=== PATIENT | female | born 1975 | race Caucasian/White ===

== ENCOUNTER 2021-08-19 18:40 | Emergency (ER) | payer OTHER, SELFPAY ==
[2021-08-19 18:45] VITALS: BP 124/76; PULSE 70; RESP 18; TEMP 36.8; O2SAT 99; BMI 20.9
--- NOTE | 2021-08-19 19:01 | HMH.EDUTC ---
[facility] [place] Disposition Clinical Impression: UTI (urinary tract infection) Qualifiers: Urinary tract infection type: site unspecified Hematuria presence: with hematuria Qualified Code(s): N39.0 - Urinary tract infection, site not specified Disposition: Home, Self-Care Condition on Discharge: Good Instructions: Urinary Tract Infection, DI for Urinary Tract Infection (UTI) Additional Instructions: *Increase fluids. Water not Soda or Tea *Start antibiotic immediately and be sure to take as ordered for the FULL length of time although you should start to see improvement over the next 48 hours *Pyridium as needed Remember this medication will turn your urine [place]. This is normal but it will stain what ever it gets on *You should not use Pyridium for more than 48 hours. If so , follow up with your primary physician to review urine culture and ensure that antibiotic is adequate for infection *Be SURE to follow up anytime for new or worsening symptoms with your family doctor. AND in 48 hours for urine culture results with your family doctor, if you do not have a doctor then you may call back to the [facility] for urine culture results and further treatment. We do recommend that you choose and establish care with a Primary Care Physician. AND follow up with them in 10-14 days to repeat UA to ensure infection is resolved and blood no longer present *Be sure to let your PCP know that we sent urine cultures from the [facility] so they can follow up to ensure that you area the on the correct antibiotic Call your doctor office and make appointment for 48 hours (2 days from today) to follow up and get the results of your urine culture and further treatment Prescriptions: Sulfamethoxazole/Trimethoprim [Bactrim DS tablet] 1 each PO BID 10 Days #20 tab Transmission Status: Received by [facility]/pharmacy #[id number] Phenazopyridine HCl [Pyridium 200mg Tablet] 200 pow PO TID #6 tab Transmission Status: Received by [id number] Referrals: Amador Aranda MD [Primary Care Provider] - Time of Disposition: 19:22 Medical Decision Making - Garcia Inquiry Pt receiving controlled substance: No Garcia was queried for this patient: No Vital Signs: 08/19/21 18:45 08/19/21 19:22 Temperature 98.3 F 98.3 F Temperature Source Oral Pulse Rate 70 Pulse Rate [Right Brachial] 70 Respiratory Rate 18 18 Blood Pressure 124/76 Blood Pressure [Right Arm] 124/76 Blood Pressure Mean [Right Arm] 92 Blood Pressure Source [Right Arm] Automatic Cuff Blood Pressure Position [Right Arm] Sitting 02 Sat by Pulse Oximetry 99 Oxygen Delivery Method Room Air - Lab Data Lab Results 08/19/21 18:49: Urine Color Dark yellow, Urine Appearance Clear, Urine pH 5.5, Ur Specific [place] 1.030, Urine Protein Negative, Urine Glucose (UA) Negative, Urine Ketones Negative, Urine Blood 2+, Urine Nitrate Positive A, Urine Bilirubin Negative, Urine Urobilinogen 0.2, Ur Leukocyte Esterase Negative Orders (Tests/Meds): ED MEDICATIONS Discontinued Medications Generic Name Dose Route Start Last Admin Trade Name Freq PRN Reason Stop Dose Admin Ceftriaxone Sodium 1 gm 08/19/21 19:10 08/19/21 19:20 Ceftriaxone 1gm Vial IM 08/19/21 19:11 1 gm ONCE ONE Administration Lidocaine HCl 0 ml 08/19/21 19:10 08/19/21 19:20 Lidocaine 1% 5ml Pf Vial IM 08/19/21 19:11 2 ml ONCE ONE Administration Medical Decision Narrative: Patient denies history of Kidney stones States that this is like it usually is when she gets a UTI Patient states that she has taken bactrim in the past without complications or reactions [facility] [place] HPI - General Stated complaint: possible kidney infection Time Seen by Provider: 08/19/21 19:01 Mode of Arrival: Ambulatory Source of Information: Patient Limitations: No Limitations Description of Symptoms (Recalled from Triage Doc. by RN): PATIENT C/O RIGHT SIDE PAIN, DIFFICULTY URINATING AND NAUSEA SINCE FRIDAY HEENT Symptoms (Recalled from RN notes)
[2021-08-19 19:03] LABS: Apearance,Urine Clear (Clear); Bilirubin,Urine Negative (Negative); Blood, Urine 2+ (Negative); Color,Urine Dark Yellow (Yellow); Glucose,Urine (UA) Negative (Negative); Ketones,Urine Negative (Negative); PH,Urine 5.5 (5.0-8.5); Protein,Urine Negative (Negative); UTC Leukocyte Esterase,Urine Negative (Negative); UTC Nitrate,Urine Positive (Negative); Urobilinogen,Urine 0.2 EU/dl (0.2)
[2021-08-19 19:22] VITALS: BP 124/76; PULSE 70; RESP 18; TEMP 36.8; O2SAT 99
== END 2021-08-19 19:28 | disposition home or self-care (01) ==
PROVIDERS: Emergency Provider Nurse Practitioner; PCP Emergency Medicine
DX: N30.00 Acute cystitis without hematuria (principal); F17.210 Nicotine dependence, cigarettes, uncomplicated; R11.0 Nausea
CPT/HCPCS: 81003; 96372; 99202; G0463; J0696

== ENCOUNTER 2021-08-21 09:54 | Emergency (ER) | payer OTHER, SELFPAY ==
[2021-08-21] VITALS (7 sets, daily range): BP systolic 108–138; BP diastolic 63–87; PULSE 68–89; RESP 16–18; TEMP 36.6–36.7; O2SAT 98–100; BMI 21.6
[2021-08-21 10:14] LABS: Microscopic, Urine URINE MICROSCOPIC (MICROSCOPIC)
[2021-08-21 10:19] LABS: Appearance,Urine CLEAR (Clear); Bilirubin,Urine Negative (Negative); Blood, Urine TRACE-I (Negative); Color,Urine YELLOW (Yellow); Glucose,Urine (UA) 1+ (Negative); Ketones,Urine 1+ (Negative); Leukocyte Esterase,Urine TRACE (Negative); Nitrate,Urine POSITIVE (Negative); Protein,Urine 2+ (Negative); Specific Gravity, Urine 1.025 (1.005-1.030); Urobilinogen,Urine >=8.0 EU/dl (0.2)
[2021-08-21 10:23] LABS: Basophils # 0.2 K/mm3 (0-0.2); Basophils % 1.6 % (0.1-2.0); Eosinophils # 0.1 K/mm3 (0.0-0.4); Eosinophils % 0.9 % (0.1-12.0); Hematocrit 50.7 % (37.0-47.0); Hemoglobin 16.2 g/dL (12.2-16.2); Lymphocytes # 3.6 K/mm3 (0.7-4.5); Lymphocytes % 29.9 % (10-50); Mean Corpuscular Hemoglobin 32.9 pg (27.0-31.2); Mean Corpuscular Volume 103.1 fl (81-99); Mean Platelet Volume 7.6 fl (7.4-10.4); Monocytes # 0.6 K/mm3 (0.1-1.0); Neutrophils # 7.5 K/mm3 (1.8-7.8); Neutrophils % 62.6 % (37.0-80.0); Platelet Count 552 K/mm3 (142-424); Red Blood Count 4.91 M/mm3 (4.20-5.40); Red Cell Distribution Width 12.9 % (11.5-17.5); White Blood Count 11.9 K/mm3 (4.8-10.8)
[2021-08-21 10:34] LABS: Chloride 101 mmol/L (98-107); Potassium 3.5 mmoL/L (3.5-5.1); Sodium 135 mmol/L (136-145)
[2021-08-21 10:36] LABS: Blood Urea Nitrogen 14 mg/dl (7-17); Creatinine Clearance Estimated 95 mL/min (50-200); Estimated Glomerular Filt Rate 91 ml/min (>60); GFR (African American) 110 ML/MIN (>60)
[2021-08-21 10:37] LABS: Alanine Aminotransferase 21 U/L (12-78); Albumin Level 5.1 g/dl (3.5-5.0); Albumin/Globulin Ratio 1.5 (1.1-1.8); Alkaline Phosphatase 86 U/L (38-126); Anion Gap 14.5 mEq/L (5-15); Aspartate Amino Transferase 32 U/L (14-36); Bilirubin,Total 0.7 mg/dl (0.2-1.3); Calcium 9.6 mg/dl (8.4-10.2); Carbon Dioxide 23 mmol/L (22.0-30.0); Globulin 3.3 g/dL (1.3-3.2); Glucose 107 mg/dl (74-100); Total Protein,Serum 8.4 g/dl (6.3-8.2)
--- NOTE | 2021-08-21 10:44 | HMH.EDGENADL ---
ED Disposition Clinical Impression: Colitis Disposition: Home, Self-Care Condition on Discharge: Fair Instructions: DI for Diarrhea and Traveler's Diarrhea -- Adult, DI for Nausea -- Adult Additional Instructions: Stop taking Bactrim. Take vancomycin as prescribed. Zofran as needed for nausea and vomiting. Rest and drink plenty of fluids. Tylenol as needed. Outpatient diarrhea profile, return sample with order to the laboratory here at [facility]. Close follow-up with your primary care provider, within 1 to 2 days. Return to the emergency department if worsening pain, fever greater than 101 degrees, uncontrollable vomiting, or bloody diarrhea. Prescriptions: Vancomycin HCl 125 mg PO QID #40 cap Transmission Status: [facility] by [id number] Ondansetron [Zofran 4mg ODT] 4 mg PO TIDP PRN #10 tab PRN Reason: Nausea And Vomiting Transmission Status: Re[facility] by [id number] Referrals: Amador Aranda MD [Primary Care Provider] - Forms: Work/School Release - Critical Care Critical Care Time: No Attestation: On 08/21/21, the high probability of a clinically significant, sudden or life threatening deterioration of the following system(s) required my full and direct attention, intervention and personal management. The time I documented below is in addition to time spent performing reported procedures but includes the following listed in this critical care notation. Medical Decision Making - Medical Records Medical records reviewed: Yes: I reviewed the patient's medical records. MR Comment: Reviewed urgent treatment center record from 08/19/2021. Urine analysis was positive for nitrates and blood. Urine culture not performed. - Garcia Inquiry Pt receiving controlled substance: Yes Garcia was queried for this patient: Yes Risks and benefits of using a controlled substance: were discussed with pt by me Vital Signs: 08/21/21 09:55 08/21/21 10:30 08/21/21 11:00 Temperature 98.1 F Temperature Source Oral Pulse Rate 72 77 Pulse Rate [Radial] 85 Respiratory Rate 16 18 Blood Pressure 108/63 L 120/74 Blood Pressure [Right Arm] 129/87 Blood Pressure Mean 88 93 Blood Pressure Mean [Right Arm] 101 Blood Pressure Position Blood Pressure Position [Right Arm] Sitting 02 Sat by Pulse Oximetry 98 99 100 Oxygen Delivery Method Room Air 08/21/21 11:30 08/21/21 12:04 08/21/21 12:30 Temperature Temperature Source Pulse Rate 77 78 68 Pulse Rate [Radial] Respiratory Rate 18 18 18 Blood Pressure 119/68 120/74 133/80 Blood Pressure [Right Arm] Blood Pressure Mean 85 97 Blood Pressure Mean [Right Arm] Blood Pressure Position Blood Pressure Position [Right Arm] 02 Sat by Pulse Oximetry 100 99 Oxygen Delivery Method 08/21/21 13:28 Temperature 98 F Temperature Source Oral Pulse Rate 89 Pulse Rate [Radial] Respiratory Rate 16 Blood Pressure 138/83 Blood Pressure [Right Arm] Blood Pressure Mean Blood Pressure Mean [Right Arm] Blood Pressure Position Sitting Blood Pressure Position [Right Arm] 02 Sat by Pulse Oximetry Oxygen Delivery Method Room Air - Lab Data Lab Results 08/21/21 09:59: Urine Color Yellow, Urine Appearance Clear, Urine pH 5.0, Ur Specific [place] 1.025, Urine Protein 2+, Urine Glucose (UA) 1+, Urine Ketones 1+, Urine Blood Trace-i, Urine Nitrate Positive, Urine Bilirubin Negative, Urine Urobilinogen >=8.0, Ur Leukocyte Esterase Trace, Urine RBC 3-5, Urine WBC 3-5, Ur Squamous Epith Cells 3-5, Amorphous Sediment 1+, Urine Bacteria 2+ 08/21/21 10:00: Amylase 106, Lipase 189 08/21/21 10:05: WBC 11.9 H, RBC 4.91, Hgb 16.2, Hct 50.7 H, MCV 103.1 H, MCH 32.9 H, MCHC 32.0, RDW 12.9, Plt Count 552 H, MPV 7.6, Neut % (Auto) 62.6, Lymph % (Auto) 29.9, [place] % (Auto) 5.0, Eos % (Auto) 0.9, Baso % (Auto) 1.6, Neut # (Auto) 7.5, Lymph # (Auto) 3.6, [place] # (Auto) 0.6, Eos # (Auto) 0.1, Baso # (Auto) 0.2 08/21/21 10:05:
--- NOTE | 2021-08-21 10:49 | CT_ITS ---
FINAL REPORT CLINICAL HISTORY: abdo pain FINDINGS: CT OF THE ABDOMEN AND PELVIS WITH CONTRAST Axial CT images of the abdomen and pelvis were obtained after the administration of intravenous contrast. Coronal reformatted images were also obtained and reviewed.This study was performed with techniques to keep radiation doses as low as reasonably achievable (ALARA). Individualized dose reduction techniques using automated exposure control or adjustment of mA and/or kV according to the patient's size were employed. Abdomen: A calcified granuloma is seen in the lingula. The heart is normal in size. The liver has an unremarkable appearance. There has been cholecystectomy. There is mild biliary ductal dilatation that may represent post cholecystectomy change. The spleen is unremarkable. There is mild right adrenal gland enlargement favoring an adenoma or hyperplasia. There is a 31 mm left adrenal mass neck cannot be accurately characterized but may represent an adenoma. The pancreas has an unremarkable appearance. The kidneys are normal, without evidence of mass or hydronephrosis. The aorta is normal in caliber. There is no free fluid or adenopathy. Pelvis: The appendix is normal. There is wall thickening of the descending colon, sigmoid colon and rectum likely representing colitis. There are several diverticulum throughout the descending colon. The urinary bladder is unremarkable. A small mass in the uterus likely represents a fibroid. A small amount of free fluid could be physiologic or reactive. There is a corpus luteum cyst in the right ovary. IMPRESSION: Wall thickening of the descending colon, sigmoid colon and rectum likely represents colitis. Left adrenal mass cannot be accurately characterized but may represent an adenoma. Mild right adrenal gland enlargement favors an adenoma or hyperplasia. Small mass in the uterus likely represents a fibroid. Corpus luteum cyst in right ovary. Reviewed, Interpreted and Dictated by Tyrese Berumen III, MD Transcribed by Jesus Thornton Authenticated by Tyrese Berumen III, MD on 08/21/2021 12:34:43 PM [facility]
[2021-08-21 10:59] LABS: Amylase 106 U/L (30-110)
[2021-08-21 11:00] LABS: Lipase 189 U/L (23-300)
[2021-08-21 11:12] LABS: Amorphous Sediment,Urine 1+ /lpf; Bacteria,Urine 2+ /lpf
[2021-08-21 11:21] LABS: HCG Qualitative, Serum Negative (Negative)
== END 2021-08-21 13:29 | disposition home or self-care (01) ==
PROVIDERS: Emergency Provider Emergency Medicine; PCP Emergency Medicine
DX: K52.9 Noninfective gastroenteritis and colitis, unspecified
CPT/HCPCS: 74177; 80053; 81001; 82150; 83690; 84703; 85025; 87086; 96365; 96375; 96376; 99283; J2405; Q9967

== ENCOUNTER 2021-08-22 11:03 | Emergency (ER) | payer OTHER, SELFPAY ==
[2021-08-22 11:04] VITALS: BP 111/76; PULSE 99; RESP 16; TEMP 36.9; O2SAT 98; BMI 21.6
[2021-08-22 11:19] LABS: Adenovirus F 40/41, stool Not Detected (NotDetected); Astrovirus Not Detected (NotDetected); Campylobacter Not Detected (NotDetected); Clostridium Difficile A/B, PCR Not Detected (NotDetected); Cryptosporidium Not Detected (NotDetected); Cyclospora Cayetanesis Not Detected (NotDetected); Entamoeba histolytica Not Detected (NotDetected); Enteroaggregative E coli Not Detected (NotDetected); Enteropathogenic E coli Not Detected (NotDetected); Enterotoxigenic E coli Not Detected (NotDetected); Giardia lamblia Not Detected (NotDetected); Norovirus Not Detected (NotDetected); Plesimonas Shigalloides, PCR Not Detected (NotDetected); Rotavirus A Not Detected (NotDetected); Salmonella, PCR Not Detected (NotDetected); Sapovirus Not Detected (NotDetected); Shiga-like toxin E coli Not Detected (NotDetected); Shigella Enterovasive E coli Not Detected (NotDetected); Vibrio Cholerae Not Detected (NotDetected); Vibrio, PCR Not Detected (NotDetected); Yersinia Entercolitica, PCR Not Detected (NotDetected)
--- NOTE | 2021-08-22 11:20 | HMH.EDGENADL ---
ED Disposition Clinical Impression: Colitis, Abdominal cramping Disposition: Home, Self-Care Condition on Discharge: Good Instructions: Acute Abdominal Pain, DI for Colitis Additional Instructions: follow up pcp, return for worse Prescriptions: Dicyclomine HCl [Bentyl 10mg capsule] 10 mg PO TID PRN #15 cap PRN Reason: Cramping Transmission Status: [id number] Hydrocodone/Acetaminophen [Hydrocodone-Acetamin 5-325 mg] 1 tab PO Q6 PRN 2 Days #5 tab PRN Reason: Moderate To Severe Pain Transmission Status: [facility] by [id number] Referrals: Amador Aranda MD [Primary Care Provider] - - Critical Care Critical Care Time: No Attestation: On 08/22/21, the high probability of a clinically significant, sudden or life threatening deterioration of the following system(s) required my full and direct attention, intervention and personal management. The time I documented below is in addition to time spent performing reported procedures but includes the following listed in this critical care notation. Medical Decision Making - Medical Records Medical records reviewed: Yes: I reviewed the patient's medical records. - Garcia Inquiry Pt receiving controlled substance: No Vital Signs: 08/22/21 11:04 08/22/21 12:00 08/22/21 13:00 Temperature 98.5 F Temperature Source Oral Pulse Rate 78 80 Pulse Rate [Radial] 99 H Respiratory Rate 16 18 Blood Pressure 120/68 118/71 Blood Pressure [Right Arm] 111/76 Blood Pressure Mean 90 Blood Pressure Mean [Right Arm] 87 Blood Pressure Position Blood Pressure Position [Right Arm] Sitting 02 Sat by Pulse Oximetry 98 98 100 Oxygen Delivery Method Room Air Room Air 08/22/21 13:14 Temperature 98 F Temperature Source Oral Pulse Rate 78 Pulse Rate [Radial] Respiratory Rate 18 Blood Pressure 113/74 Blood Pressure [Right Arm] Blood Pressure Mean Blood Pressure Mean [Right Arm] Blood Pressure Position Sitting Blood Pressure Position [Right Arm] 02 Sat by Pulse Oximetry Oxygen Delivery Method Room Air - Lab Data Lab Results 08/22/21 11:09: Stl Aeromonas (PCR) Not detected, Stl C. cayetanensis PCR Not detected, Stool Rotavirus (PCR) Not detected, Stl Adenov F 40/41 PCR Not detected, Stool Astrovirus (PCR) Not detected, Stool Campylobacter PCR Not detected, Stl C.difficile Tox PCR Not detected, Stool Cryptosporidium PCR Not detected, Stl E.coli Shiga Tox PCR Not detected, Stool E coli O157 PCR Not detected, Stl Enterotoxigenic E PCR Not detected, Stool EPEC (PCR) Not detected, Stool EAEC (PCR) Not detected, Stl E. histolytica PCR Not detected, Stool Giardia Lamblia PCR Not detected, Stool Salmonella PCR Not detected, Stool Sapovirus (PCR) Not detected, Stl P. shigelloides PCR Not detected, Stl Shigella/EIEC PCR Not detected, St Y.enterocolitica PCR Not detected, Stool Vibrio (PCR) Not detected, Stl Vibrio cholerae PCR Not detected, Stl Norovirus GI/GII PCR Not detected 08/22/21 11:25: WBC 9.2, RBC 4.34, Hgb 14.4, Hct 44.0, MCV 101.4 H, MCH 33.2 H, MCHC 32.7, RDW 13.0, Plt Count 473 H, MPV 7.6, Neut % (Auto) 53.9, Lymph % (Auto) 38.2, [place] % (Auto) 5.1, Eos % (Auto) 1.0, Baso % (Auto) 1.7, Neut # (Auto) 4.9, Lymph # (Auto) 3.5, [place] # (Auto) 0.5, Eos # (Auto) 0.1, Baso # (Auto) 0.2 08/22/21 11:25: Sodium 133 L, Potassium 3.1 L, Chloride 103, Carbon Dioxide 23, Anion Gap 10.1, BUN 13, Creatinine 0.70, Estimated Creat Clear 95, Estimated GFR 91, Est GFR ( Amer) 110, Glucose 101 H, Calcium 8.5, Total Bilirubin 0.9, AST 34, ALT 19, Alkaline Phosphatase 74, Total Protein 7.6, Albumin 4.7, Globulin 2.9, Albumin/Globulin Ratio 1.6 Result diagrams: 08/22/21 11:25 08/22/21 11:25 Orders (Tests/Meds): ED MEDICATIONS Discontinued Medications Generic Name Dose Route Start Last Admin Trade Name Freq PRN Reason Stop Dose Admin Dicyclomine HCl 20 mg 08/22/21 11:20 08/22/21 12:53 Dicyclomine 10mg Capsule PO 08/22/21 11:21
[2021-08-22 11:35] LABS: Basophils # 0.2 K/mm3 (0-0.2); Basophils % 1.7 % (0.1-2.0); Eosinophils # 0.1 K/mm3 (0.0-0.4); Hemoglobin 14.4 g/dL (12.2-16.2); Lymphocytes # 3.5 K/mm3 (0.7-4.5); Lymphocytes % 38.2 % (10-50); Mean Corpuscular HGB Conc 32.7 g/dL (31.8-35.4); Mean Corpuscular Hemoglobin 33.2 pg (27.0-31.2); Mean Corpuscular Volume 101.4 fl (81-99); Mean Platelet Volume 7.6 fl (7.4-10.4); Monocytes # 0.5 K/mm3 (0.1-1.0); Monocytes % 5.1 % (1.7-9.3); Neutrophils # 4.9 K/mm3 (1.8-7.8); Neutrophils % 53.9 % (37.0-80.0); Platelet Count 473 K/mm3 (142-424); Red Blood Count 4.34 M/mm3 (4.20-5.40); White Blood Count 9.2 K/mm3 (4.8-10.8)
[2021-08-22 11:44] LABS: Chloride 103 mmol/L (98-107); Sodium 133 mmol/L (136-145)
[2021-08-22 11:45] LABS: Potassium 3.1 mmoL/L (3.5-5.1)
[2021-08-22 11:47] LABS: Alanine Aminotransferase 19 U/L (12-78); Albumin Level 4.7 g/dl (3.5-5.0); Albumin/Globulin Ratio 1.6 (1.1-1.8); Alkaline Phosphatase 74 U/L (38-126); Anion Gap 10.1 mEq/L (5-15); Aspartate Amino Transferase 34 U/L (14-36); Bilirubin,Total 0.9 mg/dl (0.2-1.3); Blood Urea Nitrogen 13 mg/dl (7-17); Calcium 8.5 mg/dl (8.4-10.2); Carbon Dioxide 23 mmol/L (22.0-30.0); Creatinine Clearance Estimated 95 mL/min (50-200); Estimated Glomerular Filt Rate 91 ml/min (>60); GFR (African American) 110 ML/MIN (>60); Globulin 2.9 g/dL (1.3-3.2); Glucose 101 mg/dl (74-100); Total Protein,Serum 7.6 g/dl (6.3-8.2)
[2021-08-22 12:00] VITALS: BP 120/68; PULSE 78; RESP 18; O2SAT 98
[2021-08-22 13:00] VITALS: BP 118/71; PULSE 80; O2SAT 100
[2021-08-22 13:14] VITALS: BP 113/74; PULSE 78; RESP 18; TEMP 36.6; O2SAT 98
== END 2021-08-22 13:15 | disposition home or self-care (01) ==
PROVIDERS: Emergency Provider Emergency Medicine; PCP Emergency Medicine
DX: K52.9 Noninfective gastroenteritis and colitis, unspecified (principal); F17.210 Nicotine dependence, cigarettes, uncomplicated
CPT/HCPCS: 80053; 85025; 87506; 96365; 96375; 99282; J2405

== ENCOUNTER 2023-02-21 18:12 | Emergency (ER) | payer OTHER, SELFPAY ==
[2023-02-21 18:25] VITALS: BP 137/86; PULSE 63; RESP 20; TEMP 36.6; O2SAT 97; BMI 23.5
--- NOTE | 2023-02-21 18:36 | EXP.UTC ---
Discharge Plan Disposition Patient Disposition: Home, Self-Care Condition: Good Prescriptions Prescriptions: New amoxicillin 875 mg tablet 875 mg PO Q12H 10 Days Qty: 20 0RF ibuprofen 800 mg tablet 800 mg PO TID PRN (Reason: pain) Qty: 30 0RF No Action sertraline 100 MG tablet 100 mg PO DAILY propranolol 20 MG tablet 10 mg PO TID Referrals Follow up/Referrals: Amador Aranda MD [Primary Care Provider] - See instructions Activity Restrictions/Add. Instructions Additional Instructions/Restrictions: Call and make an appointment with dentist on Friday. Take all antibiotic as prescribed. Take medication with food. Clinical Impressions Clinical Impression: Dental abscess Instructions Patient Instructions: DI for Dental Pain Discharge ED Provider: Ana Maria Aleman [facility] General Stated complaint: tooth pain left upper Time Seen by Provider: 02/21/23 18:36 Related Data Home Medications Medication Instructions Recorded Confirmed propranolol 20 mg tablet 10 mg PO TID TACHYCARDIA 08/21/21 02/21/23 sertraline 100 mg tablet 100 mg PO DAILY Depression 08/21/21 02/21/23 Previous Rx's Medication Instructions Recorded amoxicillin 875 mg tablet 875 mg PO Q12H 10 days #20 tabs 02/21/23 ibuprofen 800 mg tablet 800 mg PO TID PRN pain #30 tabs 02/21/23 Allergies Allergy/AdvReac Type Severity Reaction Status Date / Time latex Allergy Verified 08/19/21 19:01 [facility] Disclaimer: The information contained in this section may have been updated after the patient was seen, as this information can be updated by other users. Medical History (Updated 02/21/23 @ 18:52 by Ana Maria Aleman APRN) Anxiety Depression UTI (urinary tract infection) Surgical History (Updated 02/21/23 @ 18:45 by Vania Vanegas RN) History of section History of cholecystectomy History of tubal ligation Social History Smoking Status: Current every day smoker tobacco type: cigarettes packs per day: 1 alcohol intake: never current occupational status: other Travel in the last 8 weeks: None ROS Obtained: Yes All systems reviewed & no additional complaints except as documented Constitutional Constitutional: Reports system reviewed and no additional complaints, except as documented Eyes Eyes: Reports system reviewed and no additional complaints, except as documented ENT Ears, Nose, Mouth, and Throat: Reports system reviewed and no additional complaints, except as documented, Reports dental pain and Reports facial pain Cardiovascular Cardiovascular: Reports system reviewed and no additional complaints, except as documented Respiratory Respiratory: Reports system reviewed and no additional complaints, except as documented Gastrointestinal Gastrointestingal: Reports system reviewed and no additional complaints, except as documented Genitourinary Female Genitourinary: Reports system reviewed and no additional complaints, except as documented Musculoskeletal Musculoskeletal: Reports system reviewed and no additional complaints, except as documented Integumentary/Breasts Skin/Breast: Reports system reviewed and no additional complaints, except as documented Neurologic Neurologic: Reports system reviewed and no additional complaints, except as documented Endocrine Endocrine: Reports system reviewed and no additional complaints, except as documented Hematologic/Lymphatic Henatologic/Lymphatic: Reports system reviewed and no additional complaints, except as documented Allergic/Immunologic Allergic/Immunologic: Reports system reviewed and no additional complaints, except as documented Physical Exam General General appearance: alert Comment: Appears in pain Head Head exam: atraumatic and normocephalic Eye Eye exam: Present normal appearance Expanded ENT Exam External ear exam: Present normal external inspection Nasal speculum exam: Bilateral: normal Mouth exam: Present norm
[2023-02-21 18:56] VITALS: BP 137/86; PULSE 63; RESP 20; TEMP 36.6; O2SAT 97
== END 2023-02-21 19:08 | disposition home or self-care (01) ==
PROVIDERS: Emergency Provider Nurse Practitioner Family; PCP Emergency Medicine
DX: K04.7 Periapical abscess without sinus (principal); R22.0 Localized swelling, mass and lump, head; F17.210 Nicotine dependence, cigarettes, uncomplicated; F41.9 Anxiety disorder, unspecified; F32.A Depression, unspecified
CPT/HCPCS: 99212; 99214; G0463

== ENCOUNTER 2025-01-18 06:58 | Emergency (ER) | payer OTHER, SELFPAY ==
--- NOTE | 2025-01-18 07:06 | ECG_ITS ---
APPROVED REPORT Exam: Resting ECG HR:78 bpm ECG Measurements Heart Rate 78 AXES WA 137 P 84 QRSd 82 QRS 76 QT 368 T 71 QTc 402 Conclusion SINUS RHYTHM INDETERMINATE AXIS POSSIBLE RIGHT VENTRICULAR CONDUCTION DELAY [RSR (QR) IN V1/V2] BORDERLINE ECG UNCONFIRMED REPORT Electronically signed by : Ian Barrett, 01/18/2025 15:28:47
--- OUTSIDE RECORDS SUMMARY | 2025-01-18 07:06 | XMS_ITS | Data Portability ---
Author Organization [facility] & KENNEDI Soriano ADMIN Address [address] [place] [address] Care Team Providers Care Satellite Dish Technician Name Role Phone ALIREZAHaiAMADOR Primary Care Provider [phone] Assessment No assessment recorded. Plan of Treatment Reminders Order Date Submit Date Provider Last Modified By Organization Details Last Modified Time Details Appointments None recorded. Lab None recorded. Referral None recorded. Procedures None recorded. Surgeries None recorded. Imaging XR, sacrum + coccyx 2024 025 [email or web address] 0 [facility] (Scheduling), [address] [place], [address], 5 08:09:54 XR, cervical spine, 2 or 3 view 2024 025 [facility] (Scheduling), [address] [place], [address], 5 08:09:54 XR, lumbosacral spine, 2 or 3 view 2023 024 [facility] Centralized Scheduling, [address] [place], [address], 4 11:24:01 Medication Orders methocarbam ol 750 mg tablet 2024 025 [facility]/Pharmacy #3016, [address] [place], [address], 5 10:56:00 Lidoderm 5 % topical patch 2024 025 [facility] [address] [place], [address], 5 10:56:01 prednisone 50 mg tablet 2024 025 [facility] [address] [place], [address], 5 10:56:01 triamcinolo ne acetonide 40 mg/mL suspension for injection 2024 025 [email or web address] 0 Not available 5 11:50:42 dexamethaso ne sodium phosphate 4 mg/mL injection solution 2024 025 [email or web address] 0 Not available 5 11:51:37 cyclobenzap rine 10 mg tablet 2024 025 [facility] [address] [place], [address], 5 10:21:09 meloxicam 15 mg tablet 2024 025 [facility] [address] [place], [address], 5 10:21:10 dexamethaso ne sodium phosphate 4 mg/mL injection solution 2023 024 [email or web address] Not available 5 15:19:04 Kenalog 40 mg/mL suspension for injection 2023 024 tpardini Not available 5 15:19:06 prednisone 50 mg tablet 2023 025 [facility] [address] [place], [address], 5 15:19:17 cyclobenzap rine 10 mg tablet 2023 025 tpardini [facility]/Pharmacy #3016, [address] [place], [address], 5 10:21:06 tramadol 50 mg tablet 2023 025 PADMINI [facility]/Pharmacy #3016, [address] [place], [address], 5 15:19:19 orphenadrin e citrate 30 mg/mL injection solution 2023 024 [facility]/Pharmacy #3016, [address] [place], [address], 5 15:19:09 Vraylar 1.5 mg capsule 2023 024 [facility] [address] [place], [address], 4 15:56:25 buspirone 15 mg tablet 2023 024 [facility] [address] [place], [address], 4 08:01:44 Patient TargetsNo targets recorded. Patient InstructionsNo instructions recorded. Reason for Referral None Reported. Results Created Date Observation Date Name Description Value Unit Range Abnormal Flag Note LastModifiedBy Organization Detail LastModifiedTime 03/23/20 24 03/23/2024 XR, lumbo sacra l spine , 2 or 3 view [facility] [address] [place] [address] Phone: Fax: Name: LOLIS JOHNSON Exam Date: : [birth year] Age 49 years Gender : F Access ion: [id number] Physic reanna: LINDA LYN Facili ty: [facility] Facili ty HSV: Outpat ient Exam: LUMBAR 2 TO 3V PROCED URE: XR LUMBAR SPINE 2-3 VIEWS, 10:03 AM CDT CLINIC AL INDICA TION: .. COMPAR GAMA: None TECHNI QUE: 2 views lumbar spine, coned down views lumbar sacral juncti on FINDIN GS/ IMPRES AYANA: Straig htenin g of lumbar lordos is. Verteb ral body height s are preser amanda. Alignm ent is mainta ined. No specif ic eviden ce of acute fractu re or sublux ation, within the limita tions of radiog raph. If sympto ms persis t and/or progre ss, recomm end CT for furthe r assess ment. Mild to modera te aorta athero sclero sis. Right upper quadra nt surgic al clips. Calcif ied phlebo liths to the pelvis . Electr onical ly signed by: Raudel graf MD 2023 11:19 AM EDT RP Workst ation: SEALWR [id number] Dictat ed By: RAUDEL WILLAMS Transc ribed By: Transc ribed On: 11:03 AM Electr onical ly signed by: RAUDEL WILLAMS 024 Thank you for referr LOLIS Chiang to [facility]. Legall y authen ticate d by SEVERINO JAVIER MD 2023-03-23 11:03: 09 CC'ed Logic: Orderi ng Provid er: EBONI MCKEON NDE CC Provid er: EBONI GUEVARA Attend ing Provid er: EBONI GUEVARA Referr ing Provid er: EBONI MCKEON NDE Admitt ing Provid er: EBONI GUEVARA tpardini [facility] (Radiology) [address] [place] [address] [place], [address], 03/23/2024 14:31:46 Result Notes Documentation Provider Name and Address Organization Details Recorded Time Xr, Lumbosacral Spine, 2 Or 3 View : [address] [place] [address] Name: PRICEJESSI Pitts Exam Date: 03/23/2024 : 1975 Age 49 years Gender: F Physician: AMADOR LYN Facility: [facility] Facility HSV: Outpatient Exam: LUMBAR 2 TO 3V PROCEDURE: XR LUMBAR SPINE 2-3 VIEWS, 03/23/2024 10:03 AM CDT CLINICAL INDICATION: .. COMPARISON: None TECHNIQUE: 2 views lumbar spine, coned down views lumbar sacral junction FINDINGS/ IMPRESSION: Straightening of lumbar lordosis. Vertebral body heights are preserved. Alignment is maintained. No specific evidence of acute fracture or subluxation, within the limitations of radiograph. If symptoms persist and/or progress, recommend CT for further assessment. Mild to moderate aorta atherosclerosis. Right upper quadrant surgical clips. Calcified phleboliths to the pelvis. Electronically signed by: Kennedy Moser MD 03/23/2024 11:19 AM EDT Dictated By: KENNEDY MOSER Transcribed By: Transcribed On: 03/23/2024 11:03 AM Electronically signed by: KENNEDY MOSER 03/23/2024 Thank you for referring JESSI PRICE to [facility]. Legally authenticated by EHSAN MOTT MD 2024-03-23 11:03:09 CC'ed Logic: Ordering Provider: EBONI MARTINI CC Provider: EBONI MARTINI Attending Provider: EBONI MARTINI Referring Provider: EBONI MARTINI Admitting Provider: EBONI martinez, [place] - [facility] - [place] & [place] 03/23/2024 14:31:46 Problems Name Problem SNOMED Code Status Onset Date Resolution Date Notes Provider Name and Address Organization Details Recorded Time Chronic obstructive pulmonary disease 82818309 Active 2022 Destini Salcedo null, [place] - [facility] - [place] & [place] 3 15:29:15 Depressive disorder 94737083 Active 2022 Destini Salcedo null, [place] - [facility] [place] & [place] 15:29:25 Tachycardia 3723750 Active 2022 Destini Salcedo null, [place] - [facility] - [facility] 3 15:29:48 Anxiety disorder 147416884 Active 2023 Destini martinez, [place] - [facility] & [place] 4 15:41:32 Problem Notes None recorded. Procedures Surgical History Date Name Laterality Status Provider Name and Address Organization Details Recorded Time 01/17 Aspiration Ganglion Cyst completed Alana Foley MD [address] [place] [address], [id number] KEE - LPNT [facility] & [place] 3 14:34:22 11/25 esophagogastroduodenoscopy completed Tesfaye Azevedo - LPNT [facility] & [place] 3 11:12:36 07/14 Abdominal Surgery completed Jai Xiong KEE LPNT [facility] & [place] 3 09:04:57 excision of mass completed Ash SWEET - LPNT [facility] & [place] 3 11:15:47 Cholecystectomy completed Ash SWEET LPNT [facility] & [place] 3 11:17:43 Tubal Ligation completed Ash SWEET - LPNT [facility] & [place] 3 11:17:51 biopsy of breast completed Ash SWEET LPNT [facility] & [place] 3 11:18:18 section completed Ash SWEET - LPNT [facility] & [place] 3 11:18:36 ovarian ablation completed Ash SWEET - LPNT [facility] & [place] 3 11:18:49 Imaging Results None recorded. Procedure Notes None recorded. Medical Equipment None Reported. Allergies Allergen ID Allergen Name Allergen Category Reaction Reaction Severity Criticality Documentation Date Start Date Code Code System Note Provider Name and Address Organization Details Recorded Time 46675 latex environme nt,medica tion rash mild low 04/04/2022 24459 91 RxNorm Destini martinez, [place] - [facility] & [place] 2 15:32:09 Medications Name Sig Start Date Stop Date Status Note LastModified by Organization Details LastModified Time blood pressu solution kit 04/07 completed Not Available Not Available Not Available blood pressure monitoring solution kit 04/04 completed Not Available Not Available Not Available cyclobenzap rine 10 mg tablet TAKE 1 TABLET BY MOUTH THREE TIMES A DAY NEEDED FOR 10 DAYS 12/08 completed Not Available Not Available Not Available buspirone 5 mg tablet TAKE 1 TABLET BY MOUTH TWICE A DAY 04/04 completed Not Available Not Available Not Available promethazin e-DM 6.25 mg-15 mg/5 mL oral syrup TAKE 5ML BY MOUTH EVERY 4 HOURS 12/17 completed Not Available Not Available Not Available prednisone 10 mg tablet TAKE 2 TABLETS BY MOUTH THREE TIMES DAILY FOR 3 DAYS TAKE 2 TABLETS BY MOUTH TWICE DAILY FOR 3 DAYS TAKE 1 TABLET BY MOUTH TWICE DAILY FOR 3 04/04 completed Not Available Not Available Not Available doxycycline hyclate 100 mg capsule TAKE 1 CAPSULE BY MOUTH TWICE A DAY 12/17 completed Not Available Not Available Not Available ibuprofen 800 mg tablet TAKE 1 TABLET BY MOUTH THREE TIMES A DAY NEEDED FOR PAIN 04/07 completed Not Available Not Available Not Available hydrocodone 5 mg-acetamin ophen 325 mg tablet TAKE 1 TABLET BY MOUTH EVERY FOUR HOURS NEEDED FOR MODERATE PAIN 03/23 completed Not Available Not Available Not Available ondansetron HCl 8 mg tablet TAKE 1 TABLET BY MOUTH EVERY DAY NEEDED 04/04 completed Not Available Not Available Not Available meloxicam 15 mg tablet TAKE 1 TABLET BY MOUTH EVERY DAY NEEDED FOR 10 DAYS 12/08 completed Not Available Not Available Not Available phenazopyri dine 200 mg tablet TAKE 1 TABLET BY MOUTH THREE TIMES A DAY 04/04 completed Not Available Not Available Not Available ondansetron HCl 4 mg tablet TAKE 1 TABLET BY ORAL ROUTE EVERY 6 HOURS NEEDED FOR NAUSEA AND VOMITING. 07/17 completed Not Available Not Available Not Available sertraline 100 mg tablet 10/14 completed Not Available Not Available Not Available promethazin e 6.25 mg-codeine 10 mg/5 mL syrup TAKE 5 ML BY MOUTH EVERY 6 HOURS NEEDED 04/04 completed Not Available Not Available Not Available penicillin V potassium 500 mg tablet TAKE 1 TABLET BY MOUTH FOUR TIMES DAILY UNTIL GONE 04/04 completed Not Available Not Available Not Available sulfamethox azole 800 mg-trimetho prim 160 mg tablet TAKE 1 TABLET BY MOUTH TWICE A DAY FOR 10 DAYS 04/04 completed Not Available Not Available Not Available tramadol 50 mg tablet TAKE 1 TABLET BY MOUTH EVERY 8 HOURS FOR 10 DAYS 07/26 completed Not Available Not Available Not Available vancomycin 125 mg capsule TAKE 1 CAPSULE BY MOUTH 4 TIMES A DAY 04/04 completed Not Available Not Available Not Available orphenadrin e citrate 30 mg/mL injection solution Inject 2 mL by intramusc ular route. 07/26 completed Not Available Not Available Not Available lamotrigine 25 mg tablet TAKE 2 TABLETS BY MOUTH EVERY DAY 04/04 completed Not Available Not Available Not Available ketorolac 10 mg tablet TAKE 1 TABLET BY MOUTH THREE TIMES A DAY NEEDED 01/17 completed Not Available Not Available Not Available meloxicam 7.5 mg tablet TAKE ONE TABLET 1 TIME A DAY 04/04 completed Not Available Not Available Not Available propranolol 10 mg tablet TAKE 1 TABLET BY MOUTH THREE TIMES A DAY 03/23 completed Not Available Not Available Not Available amoxicillin 875 mg tablet TAKE 1 TABLET BY MOUTH EVERY 12 HOURS FOR 10 DAYS 04/07 completed Not Available Not Available Not Available methocarbam ol 750 mg tablet TAKE 1 TABLET BY MOUTH TWICE A DAY active Not Available Not Available No t Available triamcinolo ne acetonide 40 mg/mL suspension for injection Take 1 mL by injection route. 2024 active Not Available Not Available Not Avai lable prednisone 50 mg tablet TAKE 1 TABLET BY MOUTH EVERY DAY active Not Available Not Available No t Available lidocaine 5 % topical patch APPLY 1 PATCH BY TOPICAL ROUTE ONCE DAILY (MAY WEAR UP TO 12HOURS.) active Not Available Not Available No t Available dexamethaso ne sodium phosphate 4 mg/mL injection solution Inject 1 mL twice a day by intramusc ular route. 2024 active Not Available Not Available Not Avai lable ibuprofen 600 mg tablet TAKE 1 TABLET BY MOUTH EVERY 4-6 HOURS NEEDED FOR PAIN 04/04 completed Not Available Not Available Not Available methylpredn isolone 4 mg tablets in a dose pack TAKE DIRECTED ON PACKAGE 04/04 completed Not Available Not Available Not Available albuterol sulfate HFA 90 mcg/actuati on aerosol inhaler INHALE 2 PUFFS BY MOUTH EVERY 4 HOURS 01/17 completed Not Available Not Available Not Available ketorolac 60 mg/2 mL intramuscul ar solution Inject 60 mg by intramusc ular route. 01/17 completed Not Available Not Available Not Available ondansetron 4 mg disintegrat ing tablet TAKE 1 TABLET BY MOUTH 3 TIMES A DAY NEEDED FOR NAUSEA/VO MITING 04/04 completed Not Available Not Available Not Available sertraline 50 mg tablet TAKE 1 TABLET BY MOUTH EVERY DAY 04/04 completed Not Available Not Available Not Available risperidone 1 mg tablet active Not Available Not Available Not Available dicyclomine 10 mg capsule TAKE 1 CAPSULE BY MOUTH EVERY 6 HOURS NEEDED 07/17 completed Not Available Not Available Not Available buspirone 15 mg tablet TAKE 1 TABLET BY MOUTH TWICE A DAY 03/23 completed Not Available Not Available Not Available aripiprazol e 10 mg tablet active Not Available Not Available Not Available quetiapine 50 mg tablet TAKE 1 TABLET BY MOUTH EVERYDAY AT BEDTIME 04/04 completed Not Available Not Available Not Available GaviLyte-G 236 gram-22.74 gram-6.74 gram-5.86 gram oral solution Take 4000 mL by oral route. 01/31 completed Not Available Not Available Not Available Vraylar 1.5 mg capsule TAKE 1 CAPSULE BY MOUTH EVERY DAY 03/23 completed Not Available Not Available Not Available Trelegy Ellipta 100 mcg-62.5 mcg-25 mcg powder for inhalation INHALE 1 PUFF EVERY DAY BY INHALATIO N ROUTE 01/17 completed Not Available Not Available Not Available Paxlovid 300 mg (150 mg x 2)-100 mg tablets in a dose pack TAKE DIRECTED ON PACKAGE 07/17 completed Not Available Not Available Not Available Vitals Date Recorded Body height Body mass index (BMI) Body weight Body temperature Oxygen saturation Oxygen saturation in Arterial blood by Pulse oximetry Heart rate Respiratory rate Systolic And Diastolic Provider Name and Address Organization Details Last Updated DateTime 5 165.1 cm 24.9 kg/m2 11029.4 2 g 99 [degF] 99 % 99 % 91 /min 16 /min 124/78 mm[Hg] Destini Pardini [place] - LPNT [facility] & [place] 5 15:18:11 Date Recorded Body height Body mass index (BMI) Body weight Body temperature Oxygen saturation Oxygen saturation in Arterial blood by Pulse oximetry Heart rate Respiratory rate Systolic And Diastolic Provider Name and Address Organization Details Last Updated DateTime 4 165.1 cm 23.4 kg/m2 65423.3 7 g 97.8 [degF] 98 % 98 % 91 /min 16 /min 120/84 mm[Hg] [facility] [place] 4 15:40:39 Date Recorded Body height Body mass index (BMI) Body weight Body temperature Oxygen saturation Oxygen saturation in Arterial blood by Pulse oximetry Heart rate Respiratory rate Systolic And Diastolic Provider Name and Address Organization Details Last Updated DateTime 5 165.1 cm 24.9 kg/m2 17229.4 2 g 98.1 [degF] 100 % 100 % 104 /min 16 /min 118/76 mm[Hg] Destini Hutson [facility] & [place] 5 10:20:44 Date Recorded Body height Body mass index (BMI) Body weight Body temperature Oxygen saturation Oxygen saturation in Arterial blood by Pulse oximetry Heart rate Respiratory rate Systolic And Diastolic Provider Name and Address Organization Details Last Updated DateTime 4 165.1 cm 24.7 kg/m2 16083.3 9 g 98.4 [degF] 100 % 100 % 93 /min 16 /min 105/70 mm[Hg] [facility] [place] 4 09:42:40 Social History Question Answer Notes LastModified by Organizat ion Details LastModified Time Tobacco Smoking Status Former Smoker Destini martinez KEE KOLB [facility] & [place] 03/23/2024 09:43:22 Do You Have An Advance Directive? No Information not available 07/17/2022 Do You Wear A Helmet When Biking? Yes [email or web address] Information not available 05/05/2023 Are You Blind Or Do You Have Difficulty Seeing? No Information not available 07/17/2022 In The 14 Days Before Symptom Onset, Have You Had Close Contact With A Laboratory-confir med COVID-19 While That Case Was Ill? No [email or web address] Information not available 05/05/2023 In The 14 Days Before Symptom Onset, Have You Had Close Contact With A Person Who Is Under Investigation For COVID-19 While That Person Was Ill? No [email or web address] Information not available 05/05/2023 Have You Been To An Area Known To Be High Risk For COVID-19? No [email or web address] Information not available 05/05/2023 Are You Deaf Or Do You Have Serious Difficulty Hearing? No [email or web address] Information not available 05/05/2023 What Type Of Diet Are You Following? REGULAR [email or web address] Information not available 05/05/2023 Have You Processed Blood Or Body Fluids From An Ebola Virus Disease Patient Without Appropriate PPE? No [email or web address] Information not available 05/05/2023 Do You Reside In Or Have You Traveled To An Area Where Ebola Virus Transmission Is Active? No [email or web address] Information not available 05/05/2023 Have There Been Any Changes To Your Family Or Social Situation? No [email or web address] Information no t available 05/05/2023 What Is The Fluoride Status Of Your Home? Unknown [email or web address] Information not available 05/05/2023 When Did You Quit Smoking? 1-5yearssincelast cigarette Information not available 03/23/2024 Are There Any Guns Present In Your Home? No [email or web address] Information not available 05/05/2023 Have You Recently Or Are You Planning To Travel To An Area With Zika Virus? No [email or web address] Information not available 05/05/2023 Do You Use Insect Repellent Routinely? Yes [email or web address] Information not available 05/05/2023 What Was The Date Of Your Most Recent Tobacco Screening? 12/08/2024 Information not available 12/08/2024 Do You Have Any Pets? Yes [email or web address] Information not available 05/05/2023 What Is Your Relationship Status? Single [email or web address] Information not available 05/05/2023 Do You Use Your Seat Belt Or Car Seat Routinely? Yes [email or web address] Information not available 05/05/2023 Are You Sexually Active? No [email or web address] Information not available 05/05/2023 Do You Have Smoke And Carbon Monoxide Detectors In Your Home? Yes [email or web address] Information not available 05/05/2023 Are You Passively Exposed To Smoke? No Information no t available 03/23/2024 How Much Tobacco Do You Smoke? No Information not available 03/23/2024 Do You Use Sunscreen Routinely? Yes [email or web address] Information not available 05/05/2023 Has Tobacco Cessation Counseling Been Provided? Yes [email or web address] Information not available 05/05/2023 On What Date Was Tobacco Cessation Counseling Provided? 04/04/2022 [email or web address] Information not available 05/05/2023 How Many Years Have You Smoked Tobacco? 30 Information not available 07/17/2022 Do You Have Difficulty Walking Or Climbing Stairs? No [email or web address] Information not available 05/05/2023 Are You Currently In School? No [email or web address] Information not available 05/05/2023 What Contraceptive Method Was Reported At End Of This Visit? None [email or web address] Information not available 05/05/2023 Do You Want To Talk About Contraception Or Prevention During Your Visit Today? No - I Do Not Want To Talk About Contraception Today Because I Am Here For Something Else [email or web address] Information not available 05/05/2023 What Is Your Reason For Having No Contraceptive Method At End Of This Visit? Abstinence [email or web address] Information not available 05/05/2023 Sex: Female Functional Status Question Answer Note LastModified by Organizat ion Details LastModified Time Do you use any illicit or recreational drugs? No Information not available 07/17/2022 Do you or have you ever used any other forms of tobacco or nicotine? No [email or web address] Information not available 05/05/2023 What is your level of alcohol consumption? None Information not available 04/04/2022 Are you currently employed? Yes cqwsldnshni25 Information not available 05/05/2023 Do you have transportation difficulties? No ibrkpnavhqq47 Information not available 05/05/2023 Are you able to walk? YESWOREST [email or web address] Information not available 05/05/2023 Do you have difficulty doing errands alone? No [email or web address] Information not available 05/05/2023 Are you able to care for yourself? Yes ojkexohzziw31 Information n ot available 05/05/2023 Do you have difficulty dressing or bathing? No ebllsjsxhbq87 Information not available 05/05/2023 What is your exercise level? Occasional [email or web address] Information not available 05/05/2023 Mental Status Question Answer Note LastModified by Organizat ion Details LastModified Time Do you feel stressed (tense, restless, nervous, or anxious, or unable to sleep at night)? [id number] [email or web address] Information not available 04/07/2023 Do you have difficulty concentrating, remembering or making decisions? No [email or web address] Information no t available 05/05/2023 Family History Relationship Description Onset Age of this Age Resolved Age Notes LastModified by Organization Details LastModified Time Father No current problems or disability [email or web address] Not available 12/08 10:00:57 Father Chronic obstructive pulmonary disease pt. added direct ly (01/14) [email or web address] Not available 01/14/2023 14:59:54 Father Mental health problem pt. added direct ly (01/14) [email or web address] Not available 01/14/2023 15:01:44 Mother Hypertensive disorder [email or web address] Not available 2022 11:19:29 Mother Disease of liver pt. added direct ly (01/14) [email or web address] Not available 01/14/2023 15:00:04 Mother Liver problem pt. added direct ly (01/14) [email or web address] Not available 01/14/2023 15:00:31 Brother No current problems or disability [email or web address] Not available 12/08 10:00:57 Son No current problems or disability [email or web address] Not available 12/08 10:00:57 Daughter No current problems or disability [email or web address] Not available 12/08 10:00:57 Paternal Grandmother Myocardial infarction pt. added direct ly (01/14) [email or web address] Not available 01/14/2023 15:00:52 Paternal Grandmother Heart disease pt. added direct ly (01/14) [email or web address] Not available 01/14/2023 15:01:15 Paternal Grandmother Mental health problem pt. added direct ly (01/14) [email or web address] Not available 01/14/2023 15:01:45 Paternal Grandmother Cerebrovascu lar accident pt. added direct ly (01/14) [email or web address] Not available 01/14/2023 15:02:08 Maternal Grandmother Myocardial infarction pt. added direct ly (01/14) [email or web address] Not available 01/14/2023 15:00:52 Maternal Grandmother Heart disease pt. added direct ly (01/14) [email or web address] Not available 01/14/2023 15:01:15 Maternal Grandmother Cerebrovascu lar accident pt. added direct ly (01/14) [email or web address] Not available 01/14/2023 15:02:08 Paternal Aunt Mental health problem pt. added direct ly (01/14) [email or web address] Not available 01/14/2023 15:01:45 Paternal Uncle Mental health problem pt. added direct ly (01/14) [email or web address] Not available 01/14/2023 15:01:45 Medical History Condition Response Vision or Eye Problems Y Headaches N Kidney or Bladder Problems N Back Problems Y Psychiatric/Mental Health Condition Y Gynecological History Statement/Question Response Menses Monthly N Current Control Method Multiple Me thods Sexually Active? N Obstetrics History GPAL:G 0 P 0 0 0 0 Immunizations Vaccine Type Date Status Note Provider Nam e and Address Organization Details Recorded Time Influenza, split virus, quadrivalent, PF 05/03/2019 completed KEE Connolly - NT [facility] & [place] 11/15/2022 11:08:15 Past Encounters Encounter ID Performer Location Encounter Start Date Encounter Closed Date Diagnosis/Indication Diagnosis SNOMED-CT Code Diagnosis ICD10 Code Diagnosis Note [id number] MD [address] [place] [address] 04/04/2022 15:23:39 04/04/2022 16:05:13 Chronic obstructive pulmonary disease 30641456 J44.9 [id number] MD Nixon England[address] [address] 07/17/2022 15:23:51 07/17/2022 16:10:46 Acute bronchitis 94511893 J20.9 will treat patient with steroids and antibiotic s he has been told to go to the emergency department should her symptoms worsen Chronic ob structive pulmonary disease 88584472 J44.9 Depressive disorder 3548 9007 F32.A Tachycardia 2519415 R00. 0 [id number] Amador Lyn MD [address] [place] [address] 12/17/2022 15:20:35 12/17/2022 15:47:49 Right flank pain 666824932 R10.9 WILL OBTAIN URINALYSIS AND A CT SCAN OF HER ABDOMEN AND PELVIS. I WILL PUT HER ON TRAMADOL FOR PAIN FOR RIGHT NOW. SHE IS TO FOLLOW-UP IN A WEEK. urinalysis is positive for hematuria. [id number] Giorgio Joseph Jr, MD [facility] [address] [address] 01/31/2023 11:18:41 01/31/2023 12:20:31 Rib pain 917931304 R07.81 patient planes of discomfort in the axillary region. Recent CT scan shows no evidence of stones, obstructio n or masses. She does have a adrenal adenoma bilaterall y which are benign and not significan tly enlarged. 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 We discussed that her pain is likely musculoske letal and conservati ve options discussed. She was reassured that the small adrenal adenomas would not be the cause of any discomfort . [id number] Amador Lyn MD [address] [place] [address] 01/17/2023 14:00:55 01/17/2023 14:41:25 Screening for malignant neoplasm of colon 347556971 Z12.11 Tachycardia 0933969 R00. 0 blood drawn in the right AC by Destini Salcedo CMA, patient tolerated well. Adult heal th examination 762107001 Z00.00 Diabetes m ellitus screening 758347973 Z13.1 Will call patient with results of lab work Ganglion c yst of right wrist [id number] 34954 M67.431 patient has a ganglion cyst on the right wrist that has been drained. 2 cc of gelatinous fluid removed. Patient tolerated procedure well. Depressive disorder 3548 9007 F32.A will add Vraylar to her regimen. Adrenal adenoma 09377318 8 D35.00 refer to gerneral surgeon [id number] Evan Andre MD [facility] [address] [place], [place] [address] [address] 01/27/2023 11:15:04 01/27/2023 11:52:54 Screening for malignant neoplasm of colon 148621263 Z12.11 Ganglion c yst of right wrist 0139688853 34609 M67.431 Screening colonoscopy 44 3170770 Z12.11 [id number] Evan Andre MD [facility] [address] [place], [place] [address] [address] 03/20/2023 10:30:40 03/20/2023 12:09:20 Ganglion cyst of right wrist 8803741782 33185 M67.431 [id number] Evan Andre MD [facility] [address] [place], [place] [address] [address] 04/07/2023 08:58:46 04/07/2023 09:16:04 Ganglion cyst of right wrist 0150889794 79285 M67.431 [id number] Evan Andre MD [facility] [address] [place] [address] [place] [address] 05/05/2023 09:49:37 05/05/2023 11:20:29 Postoperative visit 963073322 Z09 [id number] Amador Lyn MD [facility] [address] [facility] [place] [address] 09/24/2023 15:04:19 09/24/2023 15:39:57 Depressive disorder 78020132 F32.A Will restart patient on Vraylar. She has been given samples for 3 weeks. Ganglion c yst of right wrist 2614589634 04122 M67.431 patient's ganglion cyst of her right wrist has recurred. Will send her to surgery for evaluation and treatment. [id number] Amador Lyn MD [facility] [address] [place] [address] 10/15/2023 15:31:29 10/15/2023 16:32:50 Anxiety disorder 888122433 F41.9 we have had extensive discussion s regarding options. We have decided to start patient on buspirone to take along with her Vraylar. She has been instructed to follow-up in a month to let us know how this progresses . [id number] Amador Lyn MD [address] [place] [address] 11/13/2023 15:31:11 11/13/2023 16:07:41 Depressive disorder 73419265 F32.A Patient has been advised to stop taking buspirone. She should continue with her Vraylar. Anxiety disorder 8091981 F41.9 we have had extensive discussion s regarding options. We have decided to start patient on buspirone to take along with her Vraylar. She has been instructed to follow-up in a month to let us know how this progresses . [id number] Amador Lyn MD [address] [place] [address] 03/23/2024 09:36:16 03/23/2024 10:34:49 Low back pain 374405886 M54.50 will treat patient empiricall y. [id number] DANAE MAHMOOD, ELIF [address] [place] [address] 07/26/2024 15:01:07 07/26/2024 15:48:15 Fall 1734015 W19.XXXA fall prevention recommend avoiding lifting and not driving heavy machinery while on medication as below, verbalizes understand ing reports at work she is not doing either of these due to ppl training Neck pain 26581242 M54.2 medication as prescribed , follow-up if symptoms persist, ER if any urgent signs or symptoms arise, have discussed symptomati c management including heating pad and topical agents; avoid any other NSAIDs while taking meloxicam therapy last lab work in April 2023 kidney function was normal Pain in coccyx 19011289 M53.3 medication as prescribed , follow-up if symptoms persist, ER if any urgent signs or symptoms arise, have discussed symptomati c management including heating pad and topical agents [id number] Amador Lyn MD [address] [place] [address] 12/08/2024 09:57:30 12/08/2024 11:02:15 Lumbago with sciatica 199521281 M54.40 Health Concerns Section Related Observation LastModified by Organization Detai ls LastModified Time None Recorded Concern Status LastModified by Organization Details LastModified Time None Recorded Advance Directives Directive N: Payers Insurance Date Sequence Insurance Name Policy Number Policy Raya Covered Member ID Raya Member ID Guarantor Name 12/08/2024 1 [facility] [id number] Jessi Elkinsy [id number] Jessi Hai Price 12/08/2024 1 [employer] (POS) [id number] Chastity lakhani Hai Price [id number] Jessi Hai Price 05/06/2023 1 [employer]: [place] BCBS [facility] - MEDICAID (HMO) [id number] Jessi Hai Price [id number] Jessi Hai Price 05/06/[address] [facility] (MEDICAID HMO) Jessi Hai Price [id number] Jessi Valles Price Notes Date Note Type Note Provider Name and Address Organization Details Recorded Time 10/15/2023 text/html Patient presents today to follow-up on her medication. She suffers from mixed anxiety and depression. She reports good response with Vraylar. However she is run out of her medication and needs her prescriptions renewed. Patient also continues to suffer from anxiety. She states that her anxiety is quite severe. Amador Lyn MD [address] [place] [address], [phone], [facility] [place] 10/15/2023 16:08:01 11/13/2023 text/html Patient presents today to follow-up on her buspirone. She states that she can not tolerate the medication because it makes her dizzy and gives her a headache. She is currently taking buspirone as well as Vraylar. She reports a good improvement in his symptoms with Vraylar. Amador Lyn MD [address] [place] [address], [phone], [facility] & [place] 11/13/2023 15:56:47 03/23/2024 text/html patient presents today complaining of a one-week history of low back pain. She denies any trauma. Amador Lyn MD [address] [place] [address], [phone], [facility] & [place] 03/23/2024 11:09:16 07/26/2024 text/html 49-year-old fema natalia who presents with pain in her upper neck, coccyx area after fall yesterday on ice. She denies any changes in bowel or bladder habits. She does have a mild headache today but denies hitting her head. Describes as pain around the muscles in her neck and shoulders. Denies decreased range of motion. She has been using heating pad. DANAE MAHMOOD NP [address] [place] [address], [phone], [facility] & [place] 07/26/2024 15:46:19 12/08/2024 text/html patient presents today complaining of acute exacerbation of chronic low back pain. She denies any new acute trauma. Pain is described as an 8/10 on the pain scale. Amador Lyn MD [address] [place] [address], [phone], [facility] & [place] 12/08/2024 10:56:12 OBGyn Episode No OBEpisode recorded.
--- OUTSIDE RECORDS SUMMARY | 2025-01-18 07:06 | XMS_ITS | Continuity of Care Document ---
Author Organization [facility] Address [address] [place] [address] Care Team Providers Care Gold Buyer Name Role Phone AMADOR LYN Primary Care Provider Assessment No assessment recorded. Plan of Treatment Reminders Order Date Submit Date Provider Last Modified By Organization Details Last Modified Time Details Appointments None recorded. Lab None recorded. Referral None recorded. Procedures None recorded. Surgeries None recorded. Imaging None recorded. Medication Orders methocarbam ol 750 mg tablet 2024 025 [id number], [address] [place], [address], 5 10:56:00 Lidoderm 5 % topical patch 2024 025 [facility], [address] [place], [address], 5 10:56:01 prednisone 50 mg tablet 2024 025 [facility], [address] [place], [address], 5 10:56:01 triamcinolo ne acetonide 40 mg/mL suspension for injection 2024 025 [email or web address] 0 Not available 11:50:42 dexamethaso ne sodium phosphate 4 mg/mL injection solution 2024 025 [email or web address] 0 Not available 5 11:51:37 Patient TargetsNo targets recorded. Patient InstructionsNo instructions recorded. Reason for Referral None Reported. Problems Name Problem SNOMED Code Status Onset Date Resolution Date Notes Provider Name and Address Organization Details Recorded Time Chronic obstructive pulmonary disease 17384853 Active 2022 Destini Salcedo null, [place] [facility] & [place] 3 15:29:15 Depressive disorder 35623474 Active 2022 Destini Mondragoni null, [place] [facility] & [place] 3 15:29:25 Tachycardia 0288176 Active 2022 Destini Howarddini null, [place] - [facility] & [place] 3 15:29:48 Anxiety disorder 289275298 Active 2023 Destini Mondragoni null, [place] - [facility] & [place] 4 15:41:32 Problem Notes None recorded. Procedures Surgical History Date Name Laterality Status Provider Name and Address Organization Details Recorded Time 01/17 Aspiration Ganglion Cyst completed Alana Foley MD [address] [place] [address], [phone], [place] - [facility] - [place] & [place] 3 14:34:22 11/25 esophagogastroduodenoscopy completed Tesfaye Jordan [place] - [facility] - [place] & [place] 3 11:12:36 07/14 Abdominal Surgery completed Jai Xiong [place] - [facility] - [place] & [place] 3 09:04:57 excision of mass completed Ritajalil SWEET - [facility] - [place] & [place] 3 11:15:47 Cholecystectomy completed Ash SWEET - [facility] - [place] & [place] 3 11:17:43 Tubal Ligation completed Ash Altamirano [place] - [facility] - [place] & [place] 3 11:17:51 biopsy of breast completed Ash SWEET - [facility] - [place] & [place] 3 11:18:18 section completed Ash Altamirano [place] [facility] & [place] 3 11:18:36 ovarian ablation completed Ash Altamirano [facility] & [place] 3 11:18:49 Imaging Results None recorded. Procedure Notes None recorded. Medical Equipment None Reported. Allergies Allergen ID Allergen Name Allergen Category Reaction Reaction Severity Criticality Documentation Date Start Date Code Code System Note Provider Name and Address Organization Details Recorded Time 55646 latex environme nt,medica tion rash mild low 04/04/2022 93964 91 RxNorm Destini martinez, [facility] & [place] 2 15:32:09 Medications Name Sig Start Date [...] Updated DateTime 5 165.1 cm 24.9 kg/m2 78401.4 2 g 98.1 [degF] 100 % 100 % 104 /min 16 /min 118/76 mm[Hg] Destini Mondragoniwona [place] [facility] & [place] 5 10:20:44 Social History Question Answer Notes LastModified by Organizat ion Details LastModified Time Tobacco Smoking Status Former Smoker Destini Lawrencezhen [facility] & [place] 03/23/2024 09:43:22 Do You Have An Advance Directive? No Information not available 07/17/2022 Do You Wear A Helmet When Biking? Yes [email or web address] Information not available 05/05/2023 Are You Blind Or Do You Have Difficulty Seeing? No Information not available 07/17/2022 In The 14 Days Before Symptom Onset, Have You Had Close Contact With A Laboratory-confir med COVID-19 While That Case Was Ill? No [email or web address] Information not available 05/05/2023 In The 14 Days Before Symptom Onset, Have You Had Close Contact With A Person Who Is Under Investigation For COVID-19 While That Person Was Ill? No [email or web address] Information not available 05/05/2023 Have You Been To An Area Known To Be High Risk For COVID-19? No [email or web address] Information not available 05/05/2023 Are You Deaf Or Do You Have Serious Difficulty Hearing? No Information not available 05/05/2023 What Type Of Diet Are You Following? REGULAR iokthbojycc45 Information not available 05/05/2023 Have You Processed Blood Or Body Fluids From An Ebola Virus Disease Patient Without Appropriate PPE? No walvxeddbeq86 Information not available 05/05/2023 Do You Reside In Or Have You Traveled To An Area Where Ebola Virus Transmission Is Active? No [email or web address] Information not available 05/05/2023 Have There Been Any Changes To Your Family Or Social Situation? No [email or web address] Information no t available 05/05/2023 What Is The Fluoride Status Of Your Home? Unknown [email or web address] Information not available 05/05/2023 When Did You Quit Smoking? 1-5yearssincelast cigarette Information not available 03/23/2024 Are There Any Guns Present In Your Home? No [email or web address] Information not available 05/05/2023 Have You Recently Or Are You Planning To Travel To An Area With Zika Virus? No tcwklyjyzha13 Information not available 05/05/2023 Do You Use Insect Repellent Routinely? Yes tymklobcpef80 Information not available 05/05/2023 What Was The Date Of Your Most Recent Tobacco Screening? 12/08/2024 Information not available 12/08/2024 Do You Have Any Pets? Yes [email or web address] Information not available 05/05/2023 What Is Your Relationship Status? Single xcnatjfwdqh05 Information not available 05/05/2023 Do You Use Your Seat Belt Or Car Seat Routinely? Yes [email or web address] Information not available 05/05/2023 Are You Sexually Active? No iavqhekbjzz96 Information not available 05/05/2023 Do You Have Smoke And Carbon Monoxide Detectors In Your Home? Yes tltcspzakti34 Information not available 05/05/2023 Are You Passively Exposed To Smoke? No Information no t available 03/23/2024 How Much Tobacco Do You Smoke? No Information not available 03/23/2024 Do You Use Sunscreen Routinely? Yes xtmctanxzua82 Information not available 05/05/2023 Has Tobacco Cessation Counseling Been Provided? Yes yzpnrnkjmvj25 Information not available 05/05/2023 On What Date Was Tobacco Cessation Counseling Provided? 04/04/2022 [email or web address] Information not available 05/05/2023 How Many Years Have You Smoked Tobacco? 30 Information not available 07/17/2022 Do You Have Difficulty Walking Or Climbing Stairs? No Information not available 05/05/2023 Are You Currently In School? No [email or web address] Information not available 05/05/2023 What Contraceptive Method Was Reported At End Of This Visit? None aqytsnkgodw79 Information not available 05/05/2023 Do You Want To Talk About Contraception Or Prevention During Your Visit Today? No - I Do Not Want To Talk About Contraception Today Because I Am Here For Something Else [email or web address] Information not available 05/05/2023 What Is Your Reason For Having No Contraceptive Method At End Of This Visit? Abstinence espsazttyrj95 Information not available 05/05/2023 Sex: Female Functional Status Question Answer Note LastModified by Organizat ion Details LastModified Time Do you use any illicit or recreational drugs? No Information not available 07/17/2022 Do you or have you ever used any other forms of tobacco or nicotine? No ifswvcplmth41 Information not available 05/05/2023 What is your level of alcohol consumption? None Information not available 04/04/2022 Are you currently employed? Yes jtsbgatfcln51 Information not available 05/05/2023 Do you have transportation difficulties? No stjawhvutvn53 Information not available 05/05/2023 Are you able to walk? YESWOREST jdjdbhwiejr00 Information not available 05/05/2023 Do you have difficulty doing errands alone? No hsajuasxwcz47 Information not available 05/05/2023 Are you able to care for yourself? Yes yrqkcyizjyi58 Information n ot available 05/05/2023 Do you have difficulty dressing or bathing? No uivtfyrudnx34 Information not available 05/05/2023 What is your exercise level? Occasional emvjgsgxzjf55 Information not available 05/05/2023 Mental Status Question Answer Note LastModified by Organizat ion Details LastModified Time Do you feel stressed (tense, restless, nervous, or anxious, or unable to sleep at night)? [id number] zqkeixjhmzz30 Information not available 04/07/2023 Do you have difficulty concentrating, remembering or making decisions? No owfcqhvrhkt93 Information no t available 05/05/2023 Family History [...] Condition Response Vision or Eye Problems Y Back Problems Y Kidney or Bladder Problems N Psychiatric/Mental Health Condition Y Headaches N Gynecological History Statement/Question Response Menses Monthly N Current Control Method Multiple Me thods Sexually Active? N Obstetrics History GPAL:G 0 P 0 0 0 0 Immunizations Vaccine Type Date Status Note Provider Nam e and Address Organization Details Recorded Time Influenza, split virus, quadrivalent, PF 05/03/2019 completed Ash martinez, [facility] & [place] 11/15/2022 11:08:15 Past Encounters Encounter ID Performer Location Encounter Start Date Encounter Closed Date Diagnosis/Indication Diagnosis SNOMED-CT Code Diagnosis ICD10 Code Diagnosis Note [id number] Amador Lyn MD [facility] [address] [facility] [place] [address] 12/08/2024 09:57:30 12/08/2024 11:02:15 Lumbago with sciatica 236662816 M54.40 Health Concerns Section Related Observation LastModified by Organization Detai ls LastModified Time None Recorded Concern Status LastModified by Organization Details LastModified Time None Recorded Payers Encounter Date Sequence Insurance Name Policy Number Policy Raya Covered Member ID Raya Member ID Guarantor Name 12/08/2024 1 [facility] [id number] Jessi Price [id number] Jessi Price Notes Date Note Type Note Provider Name and Address Organization Details Recorded Time 12/08/2024 text/html patient presents today complaining of acute exacerbation of chronic low back pain. She denies any new acute trauma. Pain is described as an 8/10 on the pain scale. Amador Lyn MD [address] [facility] [place], [address], [facility] & [place] 12/08/2024 10:56:12 OBGyn Episode No OBEpisode recorded.
--- OUTSIDE RECORDS SUMMARY | 2025-01-18 07:06 | XMS_ITS | Clinical Summary ---
Author Organization Healthcare Address [address] [id number] Care Team Providers Care Resource Paraprofessional Name Role Phone Zahraa Pedro APRN Primary Care Provider Family History Medical History Relation Name Comments Depression Father Cirrhosis Mother Diabetes Mother Hypertension Mother Relation Name Status Comments Father Mother Social History Tobacco Use Types Packs/Day Years Used Date Smoking Tobacco: Every Day Comments:Wishing to stop smo amy Alcohol Use Standard Drinks/Week Comments Yes 0 (1 standard drink = 0.6 oz pure alcohol) Alcoholic Drinks/day: Occasional alcohol use Comments Unknown Sex and Gender Information Value Date Recorded Sex Assigned at Female 05/17/2021 6:05 PM EDT Legal Sex Female 7:40 PM EDT Gender Identity Female 05/17/2021 6:05 PM EDT Sexual Orientation Straight 05/17/2021 6: 05 PM EDT Last Filed Vital Signs Vital Sign Reading Time Taken Comments Blood Pressure 124/74 01/26/2019 8:09 AM EDT Pulse 73 01/26/2019 8:09 AM EDT Temperature 37 C (98.6 F) 01/26/2019 8:09 AM EDT Respiratory Rate - - Oxygen Saturation - - Inhaled Oxygen Concentration - - Weight 57.9 kg (127 lb 10.3 oz) 01/26/2019 8:09 AM EDT Height 160 cm (5' 3 ) 10/31/2015 2:40 PM EDT Body Mass Index 22.61 10/31/2015 2:40 PM EDT Plan of Treatment Health Maintenance Due Date Last Done Comments [facility]-Depression Screening 1975 [facility]-Infant/Child/Adol SDOH Screenings 1975 [facility]- SDOH Screenings 1995 [facility]-Adult SDOH Screenings 1995 [facility]-DTaP,Tdap,and Td Vaccine s (1 - Tdap) 01/20/1996 [facility]-Hepatitis B Vaccines (1 of 3 - 19+ 3-dose series) 01/20/1996 [facility]-Pap Smear 06/16/2003 06/16/2000, 11/11/1995, 08/29/1995 [facility]-Cervical Cancer Screening 2007 [facility]-HPV/Cotest 2007 06/16/2000, 11/11/1995, 08/29/1995 CT Colonography 2022 Colonoscopy 2022 FIT-DNA 2022 FIT 2022 FOBT 2022 Sigmoidoscopy 2022 [facility]-Colorectal Cancer Screening 2022 NEW-NEVHB-36 Vaccine ( - season) 2024 [facility]-Influenza Vaccine (#1) 2025 05/03/2019 [facility]-Zoster Vaccines (1 of 2) 2027 HPV Vaccines Aged Out No longer eligi ble based on patient's age to complete this topic [facility]-HIB Vaccines Aged Out No longer e ligible based on patient's age to complete this topic [facility]-Hepatitis A Vaccines Aged Out No longer eligible based on patient's age to complete this topic [facility]-IPV Vaccines Aged Out No longer e ligible based on patient's age to complete this topic [facility]-Pneumococcal Vaccine: Pediatrics (0 to 5 Years) and At-Risk Patients (6 to 49 Years) Aged Out No longer eligible b ased on patient's age to complete this topic [facility]-Rotavirus Vaccines Aged Out No lo nger eligible based on patient's age to complete this topic Procedures Procedure Name Priority Date/Time Associated Diagnosis Comments CYTO DATA CONVERSION Routine 06/16/2000 12:00 AM EST from Last 3 Months or Most Recently Relevant to Health Maintenance Results * Cytology (06/16/2000 12:00 AM EST) 06/16/2000 06/17/2000 9:0 3 AM EST Narrative [facility] - 06/26/2000 12:42 PM EST [facility] MR #: [id number] [facility] [place] [id number] (Age: 25) FW Collect Date: 06/16/2000 00:00 Receipt Date: 06/17/2000 09:03 Page 1 DEPARTMENT OF PATHOLOGY AND LABORATORY MEDICINE CYTOPATHOLOGY REPORT Email: [email or web address] [phone] ATTENDING MD/Practitioner: Berna Anderson MD Service: OB Location: OB OTHER MD(S): Bebo Mckeon M.D. Reported: 06/26/2000 12:42 Collected: 06/16/2000 00:00 INTERPRETATION THIN PREP (CERVICAL/VAGINAL): NO DYSPLASTIC OR MALIGNANT CELLS SEEN. FUNGAL ORGANISMS CONSISTENT WITH GAYE SPECIES. SATISFACTORY BUT LIMITED BY SPARSE TO NO ENDOCERVICAL CELLS. Electronically Signed Out By LUDWIN Grimes(ASC) LUDWIN Simental (ASC) LUDWIN Grimes([facility]) Cervical cytology is a screening test primarily for squamous cancers and precursors and has associated false negative and positive results. New technologies such as liquid based sampling may decrease but will not eliminate all false negative results. Regular screening and follow-up of unexplained clinical signs and symptoms are recommended to minimize false negative results. Please see the ASCCP website (www.asccp.org) for followup recommendations. If HPV testing was requested, correlation with the results is suggested (please call Microbiology at [phone] for results). CLINICAL INFORMATION: Menstrual History: : Second trimester Date of Last Menstrual Period: {Not Provided} Treatment History: Cryotherapy Other Clinical Conditions: Patient has a history of previous abnormal pap SPECIMEN DESCRIPTION: A: THIN PREP (CERVICAL/VAGINAL) THIN PREP PROCESS CELLULAR ENHANCEMENT ICD: V76.2 CERVIX, SPECIAL SCREENING FOR MALIGNANT NEOPLASM 112.1 CANDIDIASIS OF VULVA AND VAGINA V22.1 SUPERVISION OF OTHER NORMAL F: A; THIN SCRN [id number] SNOMED CODES: A; [id number] In cases where a pathologist has signed out the report, the service has been rendered in part by a resident. The signing pathologist has performed and is responsible for the reported pathologic evaluation. us Historical Provider MD LAB PATHOLOGY ORDERABLES Final Result SUNQUEST from Last 3 Months or Most Recently Relevant to Health Maintenance Insurance [employer] Care Teams Resource Paraprofessional Relationship Specialty Start Date End Date Zahraa Pedro APRN [address] [place] [id number] PCP - General 11/24/20
[2025-01-18 07:10] VITALS: BP 133/94; PULSE 89; O2SAT 100
--- NOTE | 2025-01-18 07:12 | XR_ITS ---
FINAL REPORT CLINICAL HISTORY: Shortness of breath COMPARISON: None FINDINGS: The heart size is normal. The mediastinum is normal. The lungs are underinflated. There are chronic changes in the lung bases. There is no focal infiltrate or edema. There are no pleural effusions. There is no pneumothorax. There is no osseous abnormality. IMPRESSION: No acute cardiopulmonary process Reviewed, Interpreted and Dictated by Billy Dominguez MD Transcribed by Yanely Rose Authenticated and [facility]
--- NOTE | 2025-01-18 07:13 | ED_ITS ---
Discharge Plan Disposition Patient Disposition: Home, Self-Care Prescriptions Prescriptions: New prednisone 50 mg tablet 50 mg PO DAILY 5 Days Qty: 5 0RF Rx Instructions: Please begin 1 day after ED visit albuterol sulfate 90 mcg/actuation HFA aerosol inhaler 4 inh inhalation Q4H PRN (Reason: shortness of breath or wheezing) Qty: 8.5 0RF Rx Instructions: 4 puffs every 4 hours for 48 hours then as needed for shortness of breath or wheezing following doxycycline hyclate 100 mg capsule 100 mg PO BID 10 Days Qty: 20 0RF No Action sertraline 100 MG tablet 100 mg PO DAILY propranolol 20 MG tablet 10 mg PO TID amoxicillin 875 mg tablet 875 mg PO Q12H 10 Days Qty: 20 0RF ibuprofen 800 mg tablet 800 mg PO TID PRN (Reason: pain) Qty: 30 0RF Referrals Follow up/Referrals: Amador Aranda MD [Primary Care Provider, Medical] - See instructions Phoebe Obregon MD [Physician, Pulmonology] - See instructions Activity Restrictions/Add. Instructions Additional Instructions/Restrictions: Please follow-up with our hydrometeorologist as discussed as I believe you may have underlying COPD given your presentation today. Return to the emergency department any significant shortness of breath or other concerns. Clinical Impressions Clinical Impression: Dyspnea, RLL pneumonia, Reactive airway disease Instructions Patient Instructions: Cough Print Language Print Language: Paraguayan Discharge ED Provider: Jasmyn Barrett General Adult HPI General Chief complaint: Cough Stated complaint: SOA Time Seen by Provider: 01/18/25 07:07 History of Present Illness HPI narrative: Patient is a 49-year-old with a history of 30 years of smoking but stopped a year ago no diagnosed COPD presents today with several weeks of cough and shortness of breath. Over the last day its become increasingly worse where she is having respiratory distress. Patient denies any other significant past medical history. No fevers or chills. She does have recent wheezing but states she is never wheezed in the past before. Also has productive sputum. Denies any lower extremity swelling hemoptysis etc. Related Data Home Medications ?Medication ?Instructions ?Recorded ?Confirmed propranolol 20 mg tablet 10 mg PO TID TACHYCARDIA 03/0402/21/23 sertraline 100 mg tablet 100 mg PO DAILY Depression 0 08/21/21 02/21/23 Previous Rx's ?Medication ?Instructions ?Recorded amoxicillin 875 mg tablet 875 mg PO Q12H 10 days #20 t abs 02/21/23 ibuprofen 800 mg tablet 800 mg PO TID PRN pain #30 t abs 02/21/23 albuterol sulfate 90 mcg/actuation 4 inh inhalation Q4 H PRN shortness 01/18/25 aerosol inhaler of breath or wheezing #8.5 g daisy doxycycline hyclate 100 mg capsule 100 mg PO BID 10 da ys #20 caps 01/18/25 prednisone 50 mg tablet 50 mg PO DAILY 5 days #5 tab s 01/18/25 Allergies Allergy/AdvReac Type Severity Reaction Status Date / Time latex Allergy Verified 08/19/21 19:01 [facility] Disclaimer: The information contained in this section may have been updated after the patient was seen, as this information can be updated by other users. Medical History (Updated 01/18/25 @ 09:04 by Jasmyn Barrett MD) UTI (urinary tract infection) Depression Anxiety Surgical History (Updated 02/21/23 @ 18:45 by Vania Vanegas RN) History of tubal ligation History of section History of cholecystectomy Social History Smoking Status: Former smoker tobacco type: cigarettes packs per day: 1 alcohol intake: never current occupational status: other Travel in the last 8 weeks?: None Have you lived/traveled outside US in past 30 days?: No Contact w/someone who lives/traveled outside US past 30 days?: No Exposure to someone with infectious disease in past 14 days?: No Do you have a fever (greater than 100.4 F or 38 C)?: No Have you tested positive for COVID-19?: No Exposed to someone with COVID-19 in past 14 days?: No Do you have a sore throat?: No Do you have a cough?: No Do you have any weakness?: No Do you have any diarrhea?: No Are you experiencing any unusual bleeding?: No Do you have any muscle aches/pain?: No Do you have any abdominal pain?: No Are you experiencing loss of taste or smell?: No Other Medical History Have you received the Flu Vaccine for this season: No Have you received the Pneumonia Vaccine: No ROS Obtained: Yes All systems reviewed & no additional complaints except as documented Physical Exam General General appearance: in distress (Patient is tachypneic) Respiratory Respiratory exam: Present normal lung sounds bilaterally, respiratory distress (Patient is tachypneic) and other (Oxygen saturations at 100% room air); Absent wheezes Cardiovascular Cardiovascular exam: Present regular rate and normal rhythm Neurological Exam Neurological exam: Present alert and oriented X3 Medical Decision Making Medical Records Screening: Per USPSTF and CDC recommendations, given the prevalence of disease in our region, it is our hospital?s policy to screen for HIV and viral Hepatitis for all patients aged 18 and over and those with ongoing risk factors. Garcia Inquiry Pt receiving controlled substance: No Vital Signs: 01/18/25 07:10 01/18/25 07:17 01/18/25 08:00 Temperature 98.2 F Temperature Source Oral Pulse Rate 89 74 Pulse Rate [Left Radial] 86 Respiratory Rate 20 Blood Pressure 133/94 H 108/66 L Blood Pressure [Right Arm] 133/64 Blood Pressure Mean [Right Arm] 87 02 Sat by Pulse Oximetry 100 100 97 Oxygen Delivery Method Room Air Room Air Lab Data Lab results reviewed: Yes I reviewed the patient's lab results. Lab Results 01/18/25 07:07: WBC 10.9 H, RBC 4.48, Hgb 14.0, Hct 41.0, MCV 91.5, MCH 31.3 H, MCHC 34.1, RDW 12.2, Plt Count 483 H, MPV 9.0, Neut % (Auto) 61.5, Lymph % (Auto) 24.2, [place] % (Auto) 5.8, Eos % (Auto) 7.3, Baso % (Auto) 0.9, Neut # (Auto) 6.7, Lymph # (Auto) 2.6, [place] # (Auto) 0.6, Eos # (Auto) 0.8 H, Baso # (Auto) 0.1, D-Dimer 0.59 H, Sodium 139, Potassium 3.8, Chloride 100, Carbon Dioxide 25, Anion Gap 17.8 H, BUN 16, Creatinine 0.80, Estimated Creat Clear 93, Estimated GFR 77, Est GFR ( Amer) 93, Glucose 111 H, Calcium 9.7, Total Bilirubin 0.6, AST 30, ALT 23, Alkaline Phosphatase 78, Troponin I < 0.01, NT-Pro-B Natriuret Pep 90.7, Total Protein 8.2, Albumin 4.8, Globulin 3.4 H, Albumin/Globulin Ratio 1.4 01/18/25 07:18: SARS-CoV-2 (PCR) Not detected, Influenza A Untype (PCR) Not detected, Influenza Type B (PCR) Not detected 01/18/25 07:07 01/18/25 07:07 Orders (Tests/Meds): ED MEDICATIONS Discontinued Medications Generic Name Dose Route Start Last Admin Trade Name Freq PRN Reason Stop Dose Admin Albuterol/Ipratropium 3 ml 01/18/25 07:11 01/18/25 07:23 Ipratropium/Albuterol 3 Ml Neb IH 01/18/25 07:12 3 ml ONCE ONE Administration Dexamethasone Sodium Phosphate 10 mg 01/18/25 07:11 01/18/25 07:23 Dexamethasone 4mg/Ml 1ml Vial IV 01/18/25 07:12 10 mg ONCE ONE Administration Sodium Chloride 1,000 mls @ 999 mls/hr 01/18/25 07:15 01/18/25 07:24 Sod Chlor 0.9% 1000ml Bag IV 01/18/25 08:15 999 mls/hr .Q1H1M LIBIA Administration ORDERS Category Date Time Status CXR --portable [XR chest portable] Stat Exams 01/18/25 07:12 Completed BNP [NT Pro Brain Natriuretic Pep.] Stat Lab 01/18/25 07:07 Completed CBC w/Auto Diff [Complete Blood Count Auto Diff] Stat Lab 01/18/25 07:07 Completed CMP [Comprehensive Metabolic Panel] Stat Lab 01/18/25 07:07 Completed D-Dimer Stat Lab 01/18/25 07:07 Completed Rapid PCR Covid and Flu A/B Stat Lab 01/18/25 07:18 Completed Trop I [Troponin I] Stat Lab 01/18/25 07:07 Completed Troponin I Q3H Lab 01/18/25 10:15 Ordered Troponin I Q3H Lab 01/18/25 13:15 Ordered ECG Data Tracing #1: I reviewed this ECG and interpreted as documented below: Ventricular rate of 78 sinus rhythm indeterminate axis no acute ischemic changes noted no significant conduction abnormalities Medical Decision Narrative: 49-year-old with shortness of breath cough wheezing. She has a extensive history of smoking is very well could be a COPD exacerbation with undiagnosed COPD. Will give a dose of DuoNeb and dexamethasone and reassess. IV fluids will also be administered. Other things in the differential include decompensated heart failure pneumonia pulmonary embolism etc. Workup is pending. Reassessment 905 patient had dramatic and significant improvements after dexamethasone and breathing treatment. Labs were performed which I personally interpreted and shows no evidence of any significant abnormalities specifically no evidence of decompensated heart failure myocardial injury pulmonary embolism etc. Chest x-ray was performed I personally interpreted which shows a right lower lobe consolidation. This is faint and radiology read this is normal but clinically I will treat her with antibiotics. Additionally given her 30-year history of smoking I believe she may have underlying COPD and have given her referral to her hydrometeorologist. Patient was discharged in improved condition prescription sent to her pharmacy return precautions emphasized. Critical Care Critical Care Time Critical Care Time: Yes Attestation: On 01/18/25, the high probability of a clinically significant, sudden or life threatening deterioration of the following system(s) required my full and direct attention, intervention and personal management. The time I documented below is in addition to time spent performing reported procedures but includes the following listed in this critical care notation. Total Time Total Critical Care Time: 35
[2025-01-18 07:17] VITALS: BP 133/64; PULSE 86; RESP 20; TEMP 36.8; O2SAT 100; BMI 25.7
[2025-01-18 07:18] LABS: Hematocrit 41.0 % (37.0-47.0); Hemoglobin 14.0 g/dL (12.2-16.2); Immature Granulocytes % 0.3 %; Mean Corpuscular HGB Conc 34.1 g/dL (31.8-35.4); Mean Corpuscular Hemoglobin 31.3 pg (27.0-31.2); Mean Corpuscular Volume 91.5 fl (81-99); Nucleated Red Blood Cells % 0 %; Platelet Count 483 K/mm3 (142-424); Red Blood Count 4.48 M/mm3 (4.20-5.40); Red Cell Distribution Width-SD 41.1 fL; White Blood Count 10.9 K/mm3 (4.8-10.8)
[2025-01-18 07:22] LABS: Coronavirus 19, PCR Not Detected (NotDetected); Influenza A, PCR Not Detected (NotDetected); Influenza B, PCR Not Detected (NotDetected)
[2025-01-18] MEDS: DEXAMETHASONE 4MG/ML 1ML VIAL 10 MG IV (07:23)
[2025-01-18] MEDS: IPRATROPIUM/ALBUTEROL 3 ML NEB IH (07:23)
[2025-01-18] MEDS: 0.9 % SODIUM CHLORIDE 1000ML 1,000 ML 999 ML IV (07:24)
[2025-01-18 07:29] LABS: Alanine Aminotransferase 23 U/L (12-78); Albumin Level 4.8 g/dl (3.5-5.0); Albumin/Globulin Ratio 1.4 (1.1-1.8); Alkaline Phosphatase 78 U/L (38-126); Anion Gap 17.8 mEq/L (5-15); Aspartate Amino Transferase 30 U/L (14-36); Bilirubin,Total 0.6 mg/dl (0.2-1.3); Blood Urea Nitrogen 16 mg/dl (7-17); Calcium 9.7 mg/dl (8.4-10.2); Carbon Dioxide 25 mmol/L (22.0-30.0); Chloride 100 mmol/L (98-107); Creatinine Clearance Estimated 93 mL/min (50-200); Creatinine,Serum 0.80 mg/dl (0.52-1.04); Estimated Glomerular Filt Rate 77 ml/min (>60); GFR (African American) 93 ML/MIN (>60); Globulin 3.4 g/dL (1.3-3.2); Glucose 111 mg/dl (74-100); Potassium 3.8 mmoL/L (3.5-5.1); Sodium 139 mmol/L (136-145); Total Protein,Serum 8.2 g/dl (6.3-8.2)
--- NOTE | 2025-01-18 07:30 | PC.NURSE ---
RAD in room at this time
[2025-01-18 07:33] LABS: D-Dimer 0.59 ug/mL (0.0-0.5)
[2025-01-18 07:41] LABS: NT Pro Brain Natriuretic Pep. 90.7 pg/mL (0-125)
[2025-01-18 07:42] LABS: Troponin I < 0.01 ng/ml (0.00-0.034)
[2025-01-18 08:00] VITALS: BP 108/66; PULSE 74; O2SAT 97
[2025-01-18 08:30] VITALS: BP 98/75; PULSE 74; O2SAT 97
[2025-01-18 09:00] VITALS: BP 118/73; PULSE 78; O2SAT 98
[2025-01-18 09:29] VITALS: BP 118/73; PULSE 85; RESP 18; TEMP 36.9; O2SAT 97
== END 2025-01-18 09:30 | disposition home or self-care (01) ==
PROVIDERS: Emergency Provider Student in an Organized Health Care Education/Training Program; PCP Emergency Medicine
DX: J18.9 Pneumonia, unspecified organism (principal); J45.909 Unspecified asthma, uncomplicated; Z87.891 Personal history of nicotine dependence
CPT/HCPCS: 71045; 80053; 83880; 84484; 85025; 85378; 87636; 93005; 96361; 96374; 99284; J1100; J7030